=== PATIENT | female | born 1960 | race African-American/Black ===

== ENCOUNTER 2016-11-01 22:04 | Emergency (ER) | payer OTHER ==
[~2016-11-01] VITALS: Ht 165.1 cm; Wt 69.4 kg
[~2016-11-01 22:04] MED LIST: ATIVAN1 MG ORAL; BUTALBITAL-ASA1 EAC1 PO; DILAUDID2 MG ORAL; FERROUS SULFAT325 MG ORAL; IBUPROFEN600 MG ORAL; KEPPRA500 MG ORAL; NORCO 5-325 TA1 EACH ORAL; PANTOPRAZOLE SO40 MG ORAL; TEMODAR250 MG PO
[2016-11-01] MEDS ORDERED: GABAPENTIN300 MG ORAL (22:27)
[2016-11-01] MEDS ORDERED: AMLODIPINE BES2.5 MG ORAL (22:27)
[2016-11-01] MEDS ORDERED: HYDROmorphone 1mg/ml Carpuject IM ONE (22:45)
--- NOTE | 2016-11-01 23:40 | Emergency Room Report ---
History of Present Illness General Chief Complaint: Lower Extremity Injury Source: Patient, Family Member Present Illness HPI Is a 56-year-old female with multiple medical problem. She has a history of brain CA and admission. Currently she been treated for breast cancer with chemotherapy. She said that her legs usually gives out. Last week he gave out she fell hitting it. 3 days later and start swelling. Has been swollen since then. Pain is 8/10. Worse with palpation. Worse with walking. Still able to bear weight. No other injury. Did not pass out. Did not followup for this injury. Allergies: Coded Allergies: AMOXICILLIN (Verified Allergy, Severe, rash, 08/15/13) SHELLFISH DERIVED (Verified Allergy, Severe, Anaphylaxis, 08/15/13) IODINE (Unverified Allergy, Unknown, 11/13/14) CLINDAMYCIN (Verified Adverse Reaction, Severe, Anaphylaxis, 08/15/13) METRONIDAZOLE (Verified Adverse Reaction, Severe, Anaphylaxis, 08/15/13) Patient History Past Medical History: see triage record, old chart reviewed Past Surgical History: none, other Pertinent Family History: none Social History: Denies: smoking Now: No Immunizations: UTD Reviewed Nursing Documentation: PMH: Agreed, PSxH: Agreed Nursing Documentation-PMH Hx Cardiac Problems: No Hx Hypertension: Yes Hx Cancer: Yes - CANCER BRAIN; BREAST,LEFT BREAST MASTECTOMY Hx Gastrointestinal Problems: No - hernia in esophagus Hx Neurological Problems: Yes - BRAIN TUMOR CHEMO SURGERY CANCER 2013 Hx Alzheimer's Disease: No Hx Seizures: Yes Review of Systems Eye: Denies: blurred vision, eye pain ENT: Denies: ear pain, nose congestion, throat swelling Respiratory: Denies: cough, shortness of breath Cardiovascular: Denies: chest pain, palpitations Gastrointestinal: Denies: abdominal pain, diarrhea, nausea, vomiting Musculoskeletal: Reports: joint pain, joint swelling, Denies: back pain Skin: Denies: rash Neurological: Denies: headache, numbness Endocrine: Denies: increased thirst, increased urine Hematologic/Lymphatic: Denies: easy bruising All Other Systems: negative except mentioned in HPI Physical Exam Vital Signs Date Time Temp Pulse Resp B/P Pulse Ox O2 Delivery O2 Flow Rate FiO2 11/01/16 22:17 98.1 78 18 129/88 97 Room Air vitals normal Sp02 EP Interpretation: reviewed, normal General Appearance: well appearing, no apparent distress, alert Head: normocephalic, atraumatic Eyes: bilateral eye EOMI, bilateral eye PERRL ENT: hearing grossly normal, normal pharynx Neck: full range of motion, supple, no meningismus Respiratory: chest non-tender, lungs clear, normal breath sounds Cardiovascular #1: regular rate, rhythm, no murmur Gastrointestinal: normal bowel sounds, non tender, no mass, no organomegaly, no bruit, non-distended Musculoskeletal: back normal, normal range of motion, other - Right knee: There is effusion and tenderness medially. Knee is stable. Sensation normal. Tender to palpation to Neurologic: alert, oriented x3 Psychiatric: mood/affect normal Skin: warm/dry Procedures Splinting Splinting : Consent: Verbal Location: Right knee Pre-Made Type: knee immobilizer Pre-Proc Neuro Vasc Exam: normal Post-Proc Neuro Vasc Exam: normal Patient Tolerated: Well Complications: None Medical Decision Making Diagnostic Impression: Primary Impression: Injury of lower extremity Qualified Codes: S89.91XA - Unspecified injury of right lower leg, initial encounter Additional Impression: Right knee sprain Qualified Codes: S83.411A - Sprain of medial collateral ligament of right knee , initial encounter ER Course Patient present with a sprain of her right knee. Most likely ligament or meniscal injury. Knee is stable otherwise. We'll discharge home with knee immobilizer. She may need an MRI if not better. Other X-Ray Diagnostic Results Other X-Ray Diagnostic Results : X-Ray Ordered: Right knee Date: November 01, 2016 Time: 23:39 EP Interpretation: Yes Findings: no fractures, no dislocation, no soft tissue swelling Number of Views: 3 Last Vital Signs Date Time Temp Pulse Resp B/P Pulse Ox O2 Delivery O2 Flow Rate FiO2 11/01/16 22:17 98.1 78 18 129/88 97 Room Air Status: improved Disposition: HOME, SELF-CARE Condition: Stable Referrals: [facility],REFERRING (PCP) Patient Instructions: Knee Sprain Additional Instructions: Followup with your DrNaima in 7 days. You may need orthopedic referral. Return if worse. JESUS MELGAR M.D. November 01, 2016 23:40
[2016-11-01 23:51] VITALS: BP 131/81
--- NOTE | 2016-11-02 10:24 | Diagnostic Imaging Report ---
Indication: Right knee trauma Technique: XRAY KNEE THREE VIEWS RIGHT Comparison: None Findings: There is no acute fracture or dislocation. No joint effusion is identified. The suprapatellar enthesophyte is present. Impression: No acute osseous abnormality.
== END 2016-11-01 23:54 | disposition home or self-care (01) ==
LOC: EMR 22:42
DX: S89.91XA Unspecified injury of right lower leg, initial encounter (principal); S83.411A Sprain of medial collateral ligament of right knee, initial encounter; Z88.8 Allergy status to other drugs, medicaments and biological substances; Z88.6 Allergy status to analgesic agent; Z91.013 Allergy to seafood; Z91.041 Radiographic dye allergy status; I10 Essential (primary) hypertension; Z85.3 Personal history of malignant neoplasm of breast; Z85.841 Personal history of malignant neoplasm of brain; Z90.12 Acquired absence of left breast and nipple
CPT/HCPCS: 29530; 73562; 96372; 99283; J1170

== ENCOUNTER 2017-02-21 13:23 | Emergency (ER) | payer OTHER ==
[~2017-02-21] VITALS: Ht 165.1 cm; Wt 71.2 kg
[~2017-02-21 13:23] MED LIST changes: +AMLODIPINE BES2.5 MG ORAL; +GABAPENTIN300 MG ORAL
[2017-02-21] MEDS ORDERED: HYDROmorphone 1mg/ml Carpuject IVP ONE ×2 (13:45→16:15)
[2017-02-21] MEDS ORDERED: Ketorolac 30mg Inj IV ONE (13:45)
--- NOTE | 2017-02-21 14:22 | Emergency Room Report ---
History of Present Illness General Chief Complaint: Pain Source: Patient Present Illness HPI Patient presents with a complaint of total body pain. She has Dilaudid 2 mg at home but she was vomiting earlier today and didn't take any. The pain is out of control. It's all of her body. She's had this problem in the past with urinary tract infections. She states she usually gets better with IV dalaudid. (Past records denote opiate dependence.) Oncologist controls pain Rxs. The patient is post chemotherapy in July. Since that time she's had multiple urinary tract infections. Treated with Macrobid and Bactrim in December and Levaquin in January. Still with discharge throughout this. Had pap last week. Ob states not sure why having problem. States nothing obvious to treat. Patient with multiple allergies. Most she states having hives after taking medicines. No depression, but frustrated at UTI not being definitively treated. No URI sy, cough, headache (per se), rashes. She has a portacath. Allergies: Coded Allergies: AMOXICILLIN (Verified Allergy, Severe, rash, 08/15/13) SHELLFISH DERIVED (Verified Allergy, Severe, Anaphylaxis, 08/15/13) IODINE (Unverified Allergy, Unknown, 11/13/14) CLINDAMYCIN (Verified Adverse Reaction, Severe, Anaphylaxis, 08/15/13) METRONIDAZOLE (Verified Adverse Reaction, Severe, Anaphylaxis, 08/15/13) Patient History Past Medical History: see triage record, old chart reviewed Past Surgical History: other - breast resection L Social History: Denies: smoking Social History Narrative at home - here with daughter and grandson Reviewed Nursing Documentation: PMH: Agreed, PSxH: Agreed Nursing Documentation-PMH Hx Cardiac Problems: No Hx Hypertension: Yes Hx Cancer: Yes - CANCER BRAIN; BREAST,LEFT BREAST MASTECTOMY Hx Gastrointestinal Problems: No - hernia in esophagus Hx Neurological Problems: Yes - BRAIN TUMOR CHEMO SURGERY CANCER 2013 Hx Alzheimer's Disease: No Hx Seizures: Yes Review of Systems All Other Systems: negative except mentioned in HPI Physical Exam Vital Signs Date Time Temp Pulse Resp B/P (MAP) Pulse Ox O2 Delivery O2 Flow Rate FiO2 02/21/17 13:26 97.9 73 16 128/8 97 Room Air Sp02 EP Interpretation: reviewed, normal General Appearance: well appearing, no apparent distress, GCS 15 Head: normocephalic Eyes: bilateral eye normal inspection ENT: moist mucus membranes Neck: supple Respiratory: lungs clear, normal breath sounds, other - portacath R chest Cardiovascular #1: regular rate, rhythm Cardiovascular #2: 2+ radial (R) Gastrointestinal: normal bowel sounds, non tender, soft Genitourinary: other - cystocoel - yellow d/c Musculoskeletal: back normal, gait/station normal, normal range of motion Neurologic: alert, oriented x3 Psychiatric: mood/affect normal Skin: normal inspection, warm/dry Medical Decision Making Diagnostic Impression: Primary Impression: UTI (urinary tract infection) Qualified Codes: N30.00 - Acute cystitis without hematuria Additional Impressions: Trichomonas vaginalis (TV) infection Cystocele Qualified Codes: N81.11 - Cystocele, midline ER Course Patient with total body pain. DDx: viral process, fibromyalgia, vasculitis, UTI - resistant organism, opiate seeking behavior, hypercalcemia/other electrolyte abnormalities amongst others. Not appear toxic. Labs and CXR indicated. Will check UA and also vaginal swab. Will treat pain and nausea. Cystocele might contribute. Labs with pyuria. Wet mount with trichomonas. CXR no pathology, EKG unremarkable. Dose of rocephin given in ED. Patient improved with treatment. Ton Po here. Multiple antibiotic allergies. Difficult finding appropriate treatment. Will treat and pre-treat with benadryl. Patient stable for outpatient observation and treatment. Laboratory Tests Test 02/21/17 14:48 02/21/17 15:21 02/21/17 16:15 White Blood Count 6.9 K/UL (4.8-10.8) Red Blood Count 4.69 M/UL (4.20-5.40) Hemoglobin 13.4 G/DL (12.0-16.0) Hematocrit 42.2 % (37.0-47.0) Mean Corpuscular Volume 90 FL (80-99) Mean Corpuscular Hemoglobin 28.6 PG (27.0-31.0) Mean Corpuscular Hemoglobin Concent 31.7 G/DL (32.0-36.0) L Red Cell Distribution Width 13.2 % (11.6-14.8) Platelet Count 279 K/UL (150-450) Mean Platelet Volume 7.3 FL (6.5-10.1) Neutrophils (%) (Auto) 57.7 % (45.0-75.0) Lymphocytes (%) (Auto) 34.2 % (20.0-45.0) Monocytes (%) (Auto) 5.5 % (1.0-10.0) Eosinophils (%) (Auto) 1.7 % (0.0-3.0) Basophils (%) (Auto) 0.9 % (0.0-2.0) Prothrombin Time 10.7 SEC (9.30-11.50) Prothrombin Time INR 1.0 (0.9-1.1) Sodium Level 142 mEQ/L (135-145) Potassium Level 3.4 mEQ/L (3.4-4.9) Chloride Level 103 mEQ/L (98-107) Carbon Dioxide Level 26 mEQ/L (20-30) Anion Gap 13 (5-15) Blood Urea Nitrogen 9 mg/dL (7-23) Creatinine 0.7 mg/dL (0.5-0.9) Estimate Glomerular Filtration Rate > 60 mL/min (>60) Glucose Level 91 mg/dL (74-106) Calcium Level 10.0 mg/dL (8.6-10.2) Total Bilirubin 0.4 mg/dL (0.0-1.2) Aspartate Amino Transferase (AST) 14 U/L (5-40) Alanine Aminotransferase (ALT) 7 U/L (3-33) Alkaline Phosphatase 82 U/L (35-104) Total Creatine Kinase 55 U/L (26-140) Troponin I < 0.30 ng/mL (<=0.30) Pro-B-Type Natriuretic Peptide 11 pg/mL (0-125) Total Protein 7.3 g/dL (6.6-8.7) Albumin 4.4 g/dL (3.5-5.2) Globulin 2.9 g/dL Albumin/Globulin Ratio 1.5 (1.0-2.7) Lipase 20 U/L (< 60) Urine Color Yellow Urine Appearance Cloudy Urine pH 5 (4.5-8.0) Urine Specific [place] 1.025 (1.005-1.035) Urine Protein 2+ (NEGATIVE) H Urine Glucose (UA) Negative (NEGATIVE) Urine Ketones 1+ (NEGATIVE) H Urine Occult Blood 2+ (NEGATIVE) H Urine Nitrite Negative (NEGATIVE) Urine Bilirubin Negative (NEGATIVE) Urine Urobilinogen Normal MG/DL (0.0-1.0) Urine Leukocyte Esterase 3+ (NEGATIVE) H Urine RBC 15-20 /HPF (0 - 2) H Urine WBC 30-40 /HPF (0 - 2) H Urine Squamous Epithelial Cells Many /LPF (NONE/OCC) H Urine Bacteria Many /HPF (NONE) H PTT 22 SEC (23-33) L Microbiology Date/Time Source Procedure Growth Status 02/21/17 16:15 Vaginal Wet Prep - Final Complete EKG Diagnostic Results Rate: normal Rhythm: NSR ST Segments: no acute changes Rhythm Strip Diag. Results EP Interpretation: yes Rhythm: NSR, no PVC's, no ectopy Chest X-Ray Diagnostic Results Chest X-Ray Diagnostic Results : Chest X-Ray Ordered: Yes # of Views/Limited/Complete: 1 View Indication: Other EP Interpretation: Yes Interpretation: no consolidation, no effusion, no pneumothorax, other - portacath and clips L Impression: Other Interpreting ER Provider: Electronically signed by Jose Miguel Dominguez MD Last Vital Signs Date Time Temp Pulse Resp B/P (MAP) Pulse Ox O2 Delivery O2 Flow Rate FiO2 02/21/17 17:15 98.0 59 17 121/89 99 Room Air Status: improved Disposition: HOME, SELF-CARE Condition: Improved Scripts Ondansetron Odt* (ZOFRAN ODT*) 4 Mg Tab.rapdis 4 MG ORAL Q8H Y for Nausea & Vomiting, #10 TAB 1 Refill Prov: Jose Miguel Dominguez M.D. 02/21/17 Diphenhydramine HCl (Benadryl) 25 Mg Capsule 25 MG PO Q6HR Y for Itching/Pruritis, #14 CAP Prov: Jose Miguel Dominguez M.D. 02/21/17 Tinidazole (TINIDAZOLE) 500 Mg Tablet 1 GM PO DAILY for 5 Days, TAB Prov: Jose Miguel Dominguez M.D. 02/21/17 Cephalexin* (KEFLEX*) 500 Mg Capsule 500 MG ORAL Q6H, #28 CAP 0 Refills Prov: Jose Miguel Dominguez M.D. 02/21/17 Jose Miguel Dominguez M.D. Feb 21, 2017 14:22
[2017-02-21 15:00] LABS: BASOPHILS % (AUTO) 0.9 % (0.0-2.0); EOSINOPHILS % (AUTO) 1.7 % (0.0-3.0); LYMPHOCYTES % (AUTO) 34.2 % (20.0-45.0); MEAN CORPUSCULAR HEMOGLOBIN 28.6 PG (27.0-31.0); MEAN CORPUSCULAR HGB CONC 31.7 G/DL (32.0-36.0); MEAN CORPUSCULAR VOLUME 90 FL (80-99); MEAN PLATELET VOLUME 7.3 FL (6.5-10.1); MONOCYTES % (AUTO) 5.5 % (1.0-10.0); NEUTROPHILS % (AUTO) 57.7 % (45.0-75.0); PLATELET COUNT 279 K/UL (150-450); RED BLOOD COUNT 4.69 M/UL (4.20-5.40); RED CELL DISTRIBUTION WIDTH 13.2 % (11.6-14.8); WHITE BLOOD COUNT 6.9 K/UL (4.8-10.8)
--- NOTE | 2017-02-21 15:01 | Diagnostic Imaging Report ---
Indication: Chest pain Comparison: None A single view chest radiograph was obtained. Findings: The lungs are clear. There is a right chest port which is in good position. The tip is in the right atrium. Heart size is normal. Aorta is mildly ectatic. Bones are osteopenic. There are surgical clips in the left axilla. Clips also projected over the left mediastinum region. Impression: No acute disease. Chest port Status post Left axillary surgery
[2017-02-21 15:12] LABS: ALANINE AMINOTRANSFERASE 7 U/L (3-33); ALBUMIN/GLOBULIN RATIO 1.5 (1.0-2.7); ANION GAP 13 (5-15); ASPARTATE AMINO TRANSFERASE 14 U/L (5-40); CARBON DIOXIDE 26 mEQ/L (20-30); CHLORIDE 103 mEQ/L (98-107); CREATININE 0.7 mg/dL (0.5-0.9); GLOMERULAR FILTRATION RATE > 60 mL/min (>60); HEMOLYSIS 11; LIPASE 20 U/L (< 60); POTASSIUM 3.4 mEQ/L (3.4-4.9); SODIUM 142 mEQ/L (135-145); TOTAL PROTEIN 7.3 g/dL (6.6-8.7); TROPONIN I < 0.30 ng/mL (<=0.30)
[2017-02-21 15:47] LABS: PROTHROMBIN TIME 10.7 SEC (9.30-11.50)
[2017-02-21 15:57] LABS: APPEARANCE,URINE CLOUDY; KETONES,URINE 1+ (NEGATIVE); LEUKOCYTE ESTERASE ,URINE 3+ (NEGATIVE); NITRITE,URINE NEGATIVE (NEGATIVE); PH,URINE 5 (4.5-8.0); PROTEIN,URINE 2+ (NEGATIVE); UROBILINOGEN,URINE NORMAL MG/DL (0.0-1.0)
[2017-02-21 16:06] LABS: RBC,URINE 15-20 /HPF (0 - 2); WBC,URINE 30-40 /HPF (0 - 2)
[2017-02-21 16:07] LABS: BACTERIA,URINE MANY /HPF; SQUAMOUS EPITHELIAL CELL,UR MANY /LPF (NONE/OCC)
[2017-02-21 16:13] VITALS: BP 124/86
[2017-02-21] MEDS ORDERED: cefTRIAXone 1 GM in NS 55 ML IVPB ONE (16:30)
[2017-02-21] MEDS ORDERED: KEFLEX500 MG ORAL (16:51)
[2017-02-21] MEDS ORDERED: TINIDAZOLE500 MG PO (16:58)
[2017-02-21] MEDS ORDERED: BENADRYL25 M3 PO (16:58)
[2017-02-21] MEDS ORDERED: ZOFRAN ODT4 MG ORAL (17:06)
[2017-02-21 17:14] VITALS: BP 121/89
[2017-02-21 17:15] VITALS: BP 121/89
--- NOTE | 2017-02-22 12:32 | Cardiology Report ---
APPROVED REPORT EKG Measurement Heart [id number] Sinus bradycardia Otherwise normal ECG
== END 2017-02-21 17:19 | disposition home or self-care (01) ==
LOC: EMR 15:10
DX: N39.0 Urinary tract infection, site not specified (principal); A59.01 Trichomonal vulvovaginitis; N81.10 Cystocele, unspecified; I10 Essential (primary) hypertension; Z85.3 Personal history of malignant neoplasm of breast; Z90.12 Acquired absence of left breast and nipple; G30.9 Alzheimer's disease, unspecified; F02.80 Dementia in other diseases classified elsewhere, unspecified severity, without behavioral disturbance, psychotic disturbance, mood disturbance, and anxiety; Z88.0 Allergy status to penicillin; Z91.013 Allergy to seafood; Z88.1 Allergy status to other antibiotic agents
CPT/HCPCS: 36415; 71010; 80053; 81003; 82550; 83690; 83880; 84484; 85025; 85610; 85730; 87086; 87210; 93005; 96361; 96374; 96375; 99284; J0696; J1170; J1885; J2405

== ENCOUNTER 2017-08-20 18:59 | Emergency (ER) | payer OTHER ==
[~2017-08-20] VITALS: Ht 165.1 cm; Wt 73.5 kg
[~2017-08-20 18:59] MED LIST changes: +BENADRYL25 M3 PO; +KEFLEX500 MG ORAL; +TINIDAZOLE500 MG PO; +ZOFRAN ODT4 MG ORAL
[2017-08-20 19:50] VITALS: BP 146/97
[2017-08-20] MEDS ORDERED: HYDROmorphone 1mg/ml Carpuject IM ONE (20:00)
[2017-08-20 20:42] LABS: APPEARANCE,URINE CLEAR; BILIRUBIN, URINE NEGATIVE (NEGATIVE); GLUCOSE, URINE (UA) NEGATIVE (NEGATIVE); KETONES,URINE NEGATIVE (NEGATIVE); LEUKOCYTE ESTERASE ,URINE 2+ (NEGATIVE); NITRITE,URINE NEGATIVE (NEGATIVE); PH,URINE 5 (4.5-8.0); PROTEIN,URINE NEGATIVE (NEGATIVE); UROBILINOGEN,URINE NORMAL MG/DL (0.0-1.0)
[2017-08-20 20:43] LABS: COLOR,URINE YELLOW
[2017-08-20 21:09] VITALS: BP 140/92
[2017-08-20 21:10] VITALS: BP 146/97
--- NOTE | 2017-08-22 07:06 | Emergency Room Report ---
History of Present Illness General Chief Complaint: Pain Source: Patient Present Illness HPI 56-year-old female for evaluation. Patient complaining of bodyaches x1 day. Dull, 10 out of 10, nonradiating. States pain is diffuse. Denies any recent trauma. History of brain cancer and breast cancer. Patient states that anytime she has pain like this is likely because of a "infection". Patient has often had UTIs which presented like this. Denies dysuria or hematuria. Denies flank pain. Denies nausea or vomiting. Denies sore throat. Denies cough. No other aggravating relieving factors. denies any other associated symptoms Allergies: Coded Allergies: AMOXICILLIN (Verified Allergy, Severe, rash, 08/15/13) SHELLFISH DERIVED (Verified Allergy, Severe, Anaphylaxis, 08/15/13) IODINE (Unverified Allergy, Unknown, 11/13/14) CLINDAMYCIN (Verified Adverse Reaction, Severe, Anaphylaxis, 08/15/13) METRONIDAZOLE (Verified Adverse Reaction, Severe, Anaphylaxis, 08/15/13) Patient History Past Medical History: HTN, other - brain ca Past Surgical History: other - mastectomy Pertinent Family History: none Social History: Denies: smoking, alcohol use, drug use Last Menstrual Period: NA Now: No Immunizations: UTD Reviewed Nursing Documentation: PMH: Agreed, PSxH: Agreed Nursing Documentation-PMH Hx Cardiac Problems: No Hx Hypertension: Yes Hx Cancer: Yes - CANCER BRAIN; BREAST,LEFT BREAST MASTECTOMY Hx Gastrointestinal Problems: No - hernia in esophagus Hx Neurological Problems: Yes - BRAIN TUMOR CHEMO SURGERY CANCER 2013 Hx Alzheimer's Disease: No Hx Seizures: Yes Review of Systems All Other Systems: negative except mentioned in HPI Physical Exam Vital Signs Date Time Temp Pulse Resp B/P (MAP) Pulse Ox O2 Delivery O2 Flow Rate FiO2 08/20/17 19:31 97.9 69 18 146/97 99 Room Air 97.9 Sp02 EP Interpretation: reviewed, normal General Appearance: no apparent distress, alert, GCS 15, non-toxic Head: normocephalic, atraumatic Eyes: bilateral eye normal inspection, bilateral eye PERRL ENT: hearing grossly normal, normal pharynx, no angioedema, normal voice Neck: full range of motion, supple/symm/no masses Respiratory: chest non-tender, lungs clear, normal breath sounds, speaking full sentences Cardiovascular #1: regular rate, rhythm, no edema Cardiovascular #2: 2+ carotid (R), 2+ carotid (L), 2+ radial (R), 2+ radial (L) , 2+ dorsalis pedis (R), 2+ dorsalis pedis (L) Gastrointestinal: normal bowel sounds, non tender, soft, non-distended, no guarding, no rebound Rectal: deferred Genitourinary: normal inspection, no CVA tenderness Musculoskeletal: back normal, gait/station normal, normal range of motion, non- tender Neurologic: alert, oriented x3, responsive, motor strength/tone normal, sensory intact, speech normal Psychiatric: judgement/insight normal, memory normal, mood/affect normal, no suicidal/homicidal ideation Reflexes: 3+ bicep (R), 3+ bicep (L), 3+ tricep (R), 3+ tricep (L), 3+ knee (R) , 3+ knee (L) Skin: normal color, no rash, warm/dry, well hydrated Lymphatic: no adenopathy Medical Decision Making Diagnostic Impression: Primary Impression: Pain ER Course Hospital Course 56-year-old female presents ED with diffuse pain. History of cancer. Differential diagnoses include: chronic pain, viral syndrome, UTI Clinical course Patient placed on stretcher. After initial history and physical I ordered pain meds, UA UA noted to be unremarkable. On reassessment pain is resolved Discussed findings with the patient. Given stable vitals with unremarkable physical exam I see no reason for further intervention or workup. Patient agrees. Recommend close followup with PMD Diagnosis - pain Stable and discharged home. Instructed to followup with PMD. Return to ED if symptoms recur or worsen Labs Test 08/20/17 20:00 Urine Color Yellow Urine Appearance Clear Urine pH 5 (4.5-8.0) Urine Specific [place] 1.025 (1.005-1.035) Urine Protein Negative (NEGATIVE) Urine Glucose (UA) Negative (NEGATIVE) Urine Ketones Negative (NEGATIVE) Urine Occult Blood Negative (NEGATIVE) Urine Nitrite Negative (NEGATIVE) Urine Bilirubin Negative (NEGATIVE) Urine Urobilinogen Normal MG/DL (0.0-1.0) Urine Leukocyte Esterase 2+ (NEGATIVE) Urine RBC 0-2 /HPF (0 - 2) Urine WBC 2-4 /HPF (0 - 2) Urine Squamous Epithelial Cells Few /LPF (NONE/OCC) Urine Bacteria Few /HPF (NONE) Urine Mucus Moderate /LPF (NONE/OCC) Last Vital Signs Date Time Temp Pulse Resp B/P (MAP) Pulse Ox O2 Delivery O2 Flow Rate FiO2 08/20/17 21:10 97.9 76 18 146/97 99 Room Air 208.2 Status: improved Disposition: HOME, SELF-CARE Condition: Stable Referrals: [facility],REFERRING (PCP) Patient Instructions: Chronic Pain CHRISTIANO SANTOS M.D. Aug 22, 2017 07:06
== END 2017-08-20 21:10 | disposition home or self-care (01) ==
LOC: EMR 19:45
DX: R52 Pain, unspecified (principal); I10 Essential (primary) hypertension; Z85.3 Personal history of malignant neoplasm of breast; Z85.841 Personal history of malignant neoplasm of brain; Z90.12 Acquired absence of left breast and nipple; Z88.1 Allergy status to other antibiotic agents; Z91.041 Radiographic dye allergy status; Z88.0 Allergy status to penicillin; Z91.013 Allergy to seafood
CPT/HCPCS: 81003; 96372; 99284; J1170

== ENCOUNTER 2017-09-01 21:10 | Emergency (ER) | payer OTHER ==
[~2017-09-01] VITALS: Ht 165.1 cm; Wt 73.5 kg
[2017-09-01 21:45] VITALS: BP 120/87
[2017-09-01] MEDS ORDERED: ANASTROZOLE1 MG PO (21:45)
[2017-09-01] MEDS ORDERED: ELMIRON100 MG ORAL (21:46)
[2017-09-01] MEDS ORDERED: HYDROmorphone 1mg/ml Carpuject IM ONE (22:15)
[2017-09-01] MEDS ORDERED: DURAGESIC1 EAC1 TDERMAL (22:21)
--- NOTE | 2017-09-01 22:21 | Emergency Room Report ---
History of Present Illness General Chief Complaint: Pain Source: Patient Present Illness HPI This is a 56-year-old female who has a history of brain cancer and also breast cancer. She is currently getting chemotherapy for breast cancer. Her chemotherapy drugs gave her body pain. She is currently taking [place] 10 mg but is not helping anymore. No nausea no vomiting. No fever chills. Pain is 9 out of 10. Diffuse in nature. No trauma. No focal deficit. Typical pain for her. No cough or congestion. Allergies: Coded Allergies: AMOXICILLIN (Verified Allergy, Severe, rash, 08/15/13) SHELLFISH DERIVED (Verified Allergy, Severe, Anaphylaxis, 08/15/13) IODINE (Unverified Allergy, Unknown, 11/13/14) CLINDAMYCIN (Verified Adverse Reaction, Severe, Anaphylaxis, 08/15/13) METRONIDAZOLE (Verified Adverse Reaction, Severe, Anaphylaxis, 08/15/13) Patient History Past Medical History: see triage record, old chart reviewed Past Surgical History: other Pertinent Family History: none Social History: Denies: smoking Last Menstrual Period: n/a Now: No Immunizations: other Reviewed Nursing Documentation: PMH: Agreed, PSxH: Agreed Nursing Documentation-PMH Hx Cardiac Problems: No Hx Hypertension: Yes Hx Cancer: Yes - CANCER BRAIN; BREAST,LEFT BREAST MASTECTOMY 2016 Hx Gastrointestinal Problems: No - hernia in esophagus Hx Neurological Problems: Yes - BRAIN TUMOR CHEMO SURGERY CANCER 2013 Hx Alzheimer's Disease: No Hx Seizures: Yes Review of Systems Eye: Denies: eye pain, blurred vision ENT: Denies: ear pain, nose congestion, throat swelling Respiratory: Denies: cough, shortness of breath Cardiovascular: Denies: chest pain, palpitations Gastrointestinal: Denies: abdominal pain, diarrhea, nausea, vomiting Musculoskeletal: Denies: back pain, joint pain Skin: Denies: rash Neurological: Denies: headache, numbness Endocrine: Denies: increased thirst, increased urine Hematologic/Lymphatic: Denies: easy bruising All Other Systems: negative except mentioned in HPI Physical Exam Vital Signs Date Time Temp Pulse Resp B/P (MAP) Pulse Ox O2 Delivery O2 Flow Rate FiO2 09/01/17 21:37 99.4 99 20 123/88 94 Room Air 99.3 vital is normal Sp02 EP Interpretation: reviewed, normal General Appearance: well appearing, no apparent distress, alert Head: normocephalic, atraumatic Eyes: bilateral eye PERRL, bilateral eye EOMI ENT: hearing grossly normal, normal pharynx Neck: full range of motion, supple, no meningismus Respiratory: chest non-tender, lungs clear, normal breath sounds Cardiovascular #1: regular rate, rhythm, no murmur Gastrointestinal: normal bowel sounds, non tender, no mass, no organomegaly, no bruit, non-distended Musculoskeletal: back normal, gait/station normal, normal range of motion Psychiatric: mood/affect normal Skin: warm/dry Medical Decision Making Diagnostic Impression: Primary Impression: Myalgia Additional Impression: Chronic pain disorder ER Course Patient with exacerbation of chronic pain. No evidence of infection. No evidence of UTI. She was here a few days ago for the same thing. We'll put her on Duragesic patch. Last Vital Signs Date Time Temp Pulse Resp B/P (MAP) Pulse Ox O2 Delivery O2 Flow Rate FiO2 09/01/17 21:37 99.4 99 20 123/88 94 Room Air 99.3 Status: improved Disposition: HOME, SELF-CARE Condition: Stable Scripts Fentanyl 50MCG Patch* (DURAGESIC 50MCG*) 1 Each Patch.td72 1 PATCH TDERMAL EVERY 72 HOURS, #10 PATCH Prov: JESUS MELGAR M.D. 09/01/17 Patient Instructions: Chronic Pain Additional Instructions: Follow-up with your doctor in 7 days. You may benefit from referral to see a pain specialist. Return if worse. JESUS MELGAR M.D. Sep 01, 2017 22:21
[2017-09-01 23:00] VITALS: BP 125/88
[2017-09-01 23:05] VITALS: BP 125/88
== END 2017-09-01 23:05 | disposition home or self-care (01) ==
LOC: EMR 21:57
DX: C50.919 Malignant neoplasm of unspecified site of unspecified female breast (principal); M79.1 Myalgia; G89.4 Chronic pain syndrome; I10 Essential (primary) hypertension; Z85.841 Personal history of malignant neoplasm of brain; Z90.12 Acquired absence of left breast and nipple; Z88.1 Allergy status to other antibiotic agents; Z91.013 Allergy to seafood; Z91.041 Radiographic dye allergy status; Z88.8 Allergy status to other drugs, medicaments and biological substances
CPT/HCPCS: 96372; 99283; J1170

== ENCOUNTER 2017-10-20 19:50 | Emergency (ER) | payer OTHER ==
[~2017-10-20] VITALS: Ht 165.1 cm; Wt 73.5 kg
[~2017-10-20 19:50] MED LIST changes: +ANASTROZOLE1 MG PO; +DURAGESIC1 EAC1 TDERMAL; +ELMIRON100 MG ORAL
[2017-10-20 20:05] VITALS: BP 149/97
[2017-10-20] MEDS ORDERED: HYDROmorphone 1mg/ml Carpuject IM ONE (21:15)
--- NOTE | 2017-10-20 21:38 | Emergency Room Report ---
History of Present Illness General Chief Complaint: Back Pain-No Injury Source: Patient, Medical Record Present Illness HPI This is a 57-year-old female with a history of brain CA and most recently breast CA. She is no longer under radiation. She was taking medicine for 5 years for her cancer. She said that she had a body scan 3 months ago and everything was stable. She presents chief complaint of left sided rib pain for 2-3 weeks. Her doctor did an x-ray and said that there was an old fracture. Worse with movement and palpation. No nausea no vomiting. No shortness of breath. No chest pain. Pain medication not helping much. She also said that her medication usually makes her bone hurt but this is different. Anus 9 out of 10. Allergies: Coded Allergies: AMOXICILLIN (Verified Allergy, Severe, rash, 08/15/13) SHELLFISH DERIVED (Verified Allergy, Severe, Anaphylaxis, 08/15/13) IODINE (Unverified Allergy, Unknown, 11/13/14) CLINDAMYCIN (Verified Adverse Reaction, Severe, Anaphylaxis, 08/15/13) METRONIDAZOLE (Verified Adverse Reaction, Severe, Anaphylaxis, 08/15/13) Patient History Past Medical History: see triage record, old chart reviewed Past Surgical History: other Pertinent Family History: none Social History: Denies: smoking Now: No Immunizations: other Reviewed Nursing Documentation: PMH: Agreed; PSxH: Agreed Nursing Documentation-PMH Hx Cardiac Problems: No Hx Hypertension: Yes Hx Cancer: Yes - CANCER BRAIN; BREAST,LEFT BREAST MASTECTOMY 2017 Hx Gastrointestinal Problems: No - hernia in esophagus Hx Neurological Problems: Yes - BRAIN TUMOR CHEMO SURGERY CANCER 2013 Hx Alzheimer's Disease: No Hx Seizures: Yes Review of Systems Eye: Denies: eye pain, blurred vision ENT: Denies: ear pain, nose congestion, throat swelling Respiratory: Denies: cough, shortness of breath Cardiovascular: Denies: chest pain, palpitations Gastrointestinal: Denies: abdominal pain, diarrhea, nausea, vomiting Musculoskeletal: Reports: back pain; Denies: joint pain Skin: Denies: rash Neurological: Denies: headache, numbness Endocrine: Denies: increased thirst, increased urine Hematologic/Lymphatic: Denies: easy bruising All Other Systems: negative except mentioned in HPI Physical Exam Vital Signs Date Time Temp Pulse Resp B/P (MAP) Pulse Ox O2 Delivery O2 Flow Rate FiO2 10/20/17 20:05 99.3 86 18 149/97 93 Room Air 99.3 vitals unremarkable Sp02 EP Interpretation: reviewed, normal General Appearance: well appearing, no apparent distress, alert Head: normocephalic, atraumatic Eyes: bilateral eye PERRL, bilateral eye EOMI ENT: hearing grossly normal, normal pharynx Neck: full range of motion, supple, no meningismus Respiratory: chest non-tender, lungs clear, normal breath sounds, other - left mastectomy. She has tenderness to palpation a the left lateral rib cage. No rash. No crepitance. Cardiovascular #1: regular rate, rhythm, no murmur Gastrointestinal: normal bowel sounds, non tender, no mass, no organomegaly, no bruit, non-distended Musculoskeletal: back normal, gait/station normal, normal range of motion Psychiatric: mood/affect normal Skin: warm/dry Medical Decision Making Diagnostic Impression: Primary Impression: Metastasis to spinal column Additional Impression: Malignant bone pain ER Course Patient presents with radicular pain of the chest area. This is concerning for bony metastasis. This is seen on the CT scan. Unknown if this is new or old. I will give the patient a copy of the CT scan and the reading. We'll discharge home. No pneumothorax. Unlikely to PE. CT/MRI/US Diagnostic Results CT/MRI/US Diagnostic Results : Imaging Test Ordered: CT chest Impression Read by radiologist. No pneumothorax. Lungs are clear. Multiple spinal metastasis. No pathological fracture. Diffuse metastatic metastasis. Last Vital Signs Date Time Temp Pulse Resp B/P (MAP) Pulse Ox O2 Delivery O2 Flow Rate FiO2 10/20/17 20:05 210.7 86 18 149/97 95 Room Air 210.7 Status: improved Disposition: HOME, SELF-CARE Condition: Stable Referrals: [facility],REFERRING (PCP) Additional Instructions: Call your oncologist for follow-up appointment JESSICA. Bring the CT scan reading and CD with you. Return if symptom worsen. JESUS MELGAR M.D. Oct 20, 2017 21:38
[2017-10-20 22:25] VITALS: BP_SYST 145; BP_SYST 149; BP_DIAS 94; BP_DIAS 97
--- NOTE | 2017-10-21 08:42 | Diagnostic Imaging Report ---
Indication: Chest pain Technique: Continuous helical transaxial imaging of the chest was obtained from the thoracic inlet to the upper abdomen. No intravenous contrast was administered. Coronal 2-D reformats were also obtained. Total Dose length Product (DLP): 591.[address] Dose Index Volume (CTDIvol): 15.06 mGy Comparison: none Findings: Left mastectomy noted with surgical clips in the left axilla consistent with prior breast carcinoma, mastectomy and axillary node dissection. The lungs are clear. The liver is diffusely abnormal with areas of low attenuation consistent with metastatic neoplasm. There are multiple lytic lesions within the thoracic spine consistent with metastatic neoplasm. There is a right chest port present with the tip of the port terminating in the right atrium in good position. The heart is unremarkable. There is no adenopathy in the chest. Small hiatal hernia is present. No pleural effusion identified. Trace basilar atelectasis noted posteriorly. Aorta is mildly calcified. There is probable sludge or small stones in the gallbladder. There are hypodensities within the left kidney, partially imaged on this study and probably cystic. IMPRESSION: Evidence of metastatic neoplasm to the bones and liver. Evidence of prior diagnosis of breast carcinoma with stigmata of left mastectomy and axillary lymph node dissection. Atherosclerotic disease Stones versus sludge in the gallbladder. Suggestion of cysts within the left kidney, incompletely assessed on the current study is obtained. Hiatal hernia [facility] has communicated the preliminary results to the Emergency Department. Their findings are largely concordant with this report. The CT scanner at [facility] is accredited by the [employer] and the scans are performed using dose optimization techniques as appropriate to a performed exam including Automatic Exposure control.
== END 2017-10-20 22:28 | disposition home or self-care (01) ==
LOC: EMR 20:47
DX: C79.51 Secondary malignant neoplasm of bone (principal); G89.3 Neoplasm related pain (acute) (chronic); Z85.3 Personal history of malignant neoplasm of breast; Z85.841 Personal history of malignant neoplasm of brain; Z90.12 Acquired absence of left breast and nipple; I10 Essential (primary) hypertension; K44.9 Diaphragmatic hernia without obstruction or gangrene; Z91.041 Radiographic dye allergy status; Z88.0 Allergy status to penicillin; Z91.013 Allergy to seafood; Z88.1 Allergy status to other antibiotic agents
CPT/HCPCS: 71250; 96372; 99284; J1170

== ENCOUNTER 2017-11-10 20:00 | Emergency (ER) | payer OTHER ==
[~2017-11-10] VITALS: Ht 165.1 cm; Wt 72.6 kg
[2017-11-10 20:53] VITALS: BP 132/95
[2017-11-10] MEDS ORDERED: Morphine Sulfate 10mg/ml Inj IM ONE (21:15)
--- NOTE | 2017-11-10 21:24 | Emergency Room Report ---
History of Present Illness General Chief Complaint: Pain Source: Patient Present Illness HPI This patient has a history of metastatic breast cancer. She states she underwent radiation marking today. She states that after the visit today she had pain in the right side of her rib cage that radiates to her arm. She states it is very tender to palpation. She denies trauma. She denies chest pain or abdominal pain. She denies shortness of breath. She states that fentanyl patches are not working for her and she is not using them. She is requesting IM Dilaudid. She states that this is pain related to her metastatic cancer. She has no other complaints. Allergies: Coded Allergies: AMOXICILLIN (Verified Allergy, Severe, rash, 08/15/13) SHELLFISH DERIVED (Verified Allergy, Severe, Anaphylaxis, 08/15/13) IODINE (Unverified Allergy, Unknown, 11/13/14) CLINDAMYCIN (Verified Adverse Reaction, Severe, Anaphylaxis, 08/15/13) METRONIDAZOLE (Verified Adverse Reaction, Severe, Anaphylaxis, 08/15/13) Patient History Past Medical History: see triage record, other - Metastatic breast ca, brain tumor. Past Surgical History: other - Mastectomy Social History: Denies: smoking, alcohol use, drug use Last Menstrual Period: None Reviewed Nursing Documentation: PMH: Agreed; PSxH: Agreed Nursing Documentation-PMH Hx Cardiac Problems: No Hx Hypertension: Yes Hx Cancer: Yes - CANCER BRAIN; BREAST,LEFT BREAST MASTECTOMY 2016 Hx Gastrointestinal Problems: No - hernia in esophagus Hx Neurological Problems: Yes - BRAIN TUMOR CHEMO SURGERY CANCER 2013 Hx Alzheimer's Disease: No Hx Seizures: Yes Review of Systems All Other Systems: negative except mentioned in HPI Physical Exam Vital Signs Date Time Temp Pulse Resp B/P (MAP) Pulse Ox O2 Delivery O2 Flow Rate FiO2 11/10/17 20:06 98.3 83 18 132/95 98 Room Air 98.2 Sp02 EP Interpretation: reviewed, normal General Appearance: no apparent distress, alert, GCS 15, non-toxic Head: normocephalic, atraumatic Eyes: bilateral eye normal inspection, bilateral eye PERRL ENT: hearing grossly normal, normal pharynx, no angioedema, normal voice Neck: full range of motion, supple/symm/no masses Respiratory: lungs clear, normal breath sounds, no respiratory distress, no retraction, no accessory muscle use, speaking full sentences, other - TTP along the lower ribs on the R. chest wall, reproduces pain. Cardiovascular #1: regular rate, rhythm, no edema Gastrointestinal: normal bowel sounds, non tender, soft, non-distended, no guarding, no rebound Rectal: deferred Musculoskeletal: back normal, gait/station normal, normal range of motion, non- tender Neurologic: alert, oriented x3, responsive, motor strength/tone normal, sensory intact, speech normal Psychiatric: judgement/insight normal, memory normal, mood/affect normal, no suicidal/homicidal ideation Skin: normal color, no rash, warm/dry, well hydrated Medical Decision Making Diagnostic Impression: Primary Impression: Chronic pain ER Course This patient has chronic pain and obvious opioid dependence. She does have metastatic breast cancer. Educated the patient that I could not give her prescription for any narcotics for her chronic pain. However, she did request IM Dilaudid. Dilaudid is on backorder and she was given morphine IM. She was requesting an IM injection of a narcotic and did not want any further workup. The patient's pain is reproducible on examination and is likely musculoskeletal in etiology. I do not suspect an emergency medical condition based on my medical screening exam, I do not feel any further evaluation is indicated. The patient is given close return precautions and follow-up instructions. Last Vital Signs Date Time Temp Pulse Resp B/P (MAP) Pulse Ox O2 Delivery O2 Flow Rate FiO2 11/10/17 21:16 98.2 11/10/17 20:53 18 132/95 98 Room Air 11/10/17 20:06 83 Disposition: HOME, SELF-CARE Condition: Improved Patient Instructions: Chronic Pain Additional Instructions: The Emergency Department only prescribes CONTROLLED SUBSTANCES for acute injuries. There is no evidence of an emergent condition requiring the requested medication refill, and no evidence of an acute injury. Controlled substances are very addictive and require close monitoring when being prescribed controlled substances an outpatient treatment The emergency department is not a resource to be used as outpatient followup, and therefore reserve the regular prescribing, or refill or regularly prescribed controlled substances for your PCP or your chronic pain management provider for your safety -- We urge you to follow up with your PRIMARY CARE DOCTOR who can fully evaluate you , Monitor your condition and safely prescribe any necessary medications that are controlled. RUFUS HESS D.O. November 10, 2017 21:24
[2017-11-10 22:46] VITALS: BP 132/95
== END 2017-11-10 21:35 | disposition home or self-care (01) ==
LOC: EMR 20:20
DX: G89.29 Other chronic pain (principal); C50.912 Malignant neoplasm of unspecified site of left female breast; C79.31 Secondary malignant neoplasm of brain; Z90.12 Acquired absence of left breast and nipple; Z92.3 Personal history of irradiation; I10 Essential (primary) hypertension; Z88.8 Allergy status to other drugs, medicaments and biological substances; Z88.0 Allergy status to penicillin; Z91.013 Allergy to seafood
CPT/HCPCS: 96372; 99283; J2270

== ENCOUNTER 2017-12-05 11:18 | Emergency (ER) | payer OTHER ==
[~2017-12-05] VITALS: Ht 165.1 cm; Wt 65.8 kg
[2017-12-05 11:57] VITALS: BP 119/82
--- NOTE | 2017-12-05 11:57 | Emergency Room Report ---
History of Present Illness General Chief Complaint: Back Pain-No Injury Source: Patient, Family Member Present Illness HPI Patient is here with increased back pain Patient provides history of metastatic breast cancer Has recently finished a course of chemotherapy about 5 days ago patient is being provided [place] pills for her pain And reports that that medicine is not controlling her pain patient has been eating and drinking less than usual as well Feels that she has difficulty getting around And taking care of herself Patient is here with family members who are thankful for diagnosing her problem Allergies: Coded Allergies: AMOXICILLIN (Verified Allergy, Severe, rash, 08/15/13) SHELLFISH DERIVED (Verified Allergy, Severe, Anaphylaxis, 08/15/13) IODINE (Unverified Allergy, Unknown, 11/13/14) CLINDAMYCIN (Verified Adverse Reaction, Severe, Anaphylaxis, 08/15/13) METRONIDAZOLE (Verified Adverse Reaction, Severe, Anaphylaxis, 08/15/13) Patient History Past Medical History: see triage record Pertinent Family History: none Reviewed Nursing Documentation: PMH: Agreed; PSxH: Agreed Nursing Documentation-PMH Hx Cardiac Problems: No Hx Hypertension: Yes Hx Pacemaker: No - Mass on back Hx Cancer: Yes - CANCER BRAIN; BREAST,LEFT BREAST MASTECTOMY 2017 Hx Gastrointestinal Problems: No - hernia in esophagus Hx Neurological Problems: Yes - BRAIN TUMOR CHEMO SURGERY CANCER 2013 Hx Alzheimer's Disease: No Hx Seizures: Yes Review of Systems All Other Systems: negative except mentioned in HPI Physical Exam Vital Signs Date Time Temp Pulse Resp B/P (MAP) Pulse Ox O2 Delivery O2 Flow Rate FiO2 12/05/17 11:32 97.7 89 18 119/82 96 Room Air 97.7 Sp02 EP Interpretation: reviewed, normal General Appearance: no apparent distress Head: normocephalic, atraumatic Eyes: bilateral eye PERRL, bilateral eye other - Mild pallor ENT: normal pharynx, no angioedema Neck: supple Respiratory: lungs clear Cardiovascular #1: regular rate, rhythm Gastrointestinal: non tender, soft Musculoskeletal: other - Patient has diffuse discomfort thoracic and lumbar spine region no obvious step-off moving upper extremity without focal deficit Neurologic: alert, oriented x3, responsive Skin: pallor Lymphatic: no adenopathy Medical Decision Making Diagnostic Impression: Primary Impression: Chemotherapy adverse reaction Additional Impressions: Intractable pain Refusal of care by patient ER Course Upon arrival and initial evaluation patient appears in acute pain Patient's family/friend was at bedside from the initial examination she was on the phone talking to case management/insurance company After initial discussion I recommended baseline blood work evaluation and pain medication However the patient and family/friend report that they have discussed the situation with the appropriate people and will be taking her to [facility] Where the patient's Hemeoncologist work Last Vital Signs Date Time Temp Pulse Resp B/P (MAP) Pulse Ox O2 Delivery O2 Flow Rate FiO2 12/05/17 11:32 97.7 89 18 119/82 96 Room Air 97.7 Status: unchanged Disposition: AGAINST MEDICAL ADVICE - Leaving with refusal of care Condition: Unknown Referrals: [facility],REFERRING (PCP) Additional Instructions: Please present to the emergency room if he have any other questions or concerns , or if you would like to be treated here Kristi Mehta DO Dec 05, 2017 11:57
[2017-12-05 11:59] VITALS: BP 119/82
== END 2017-12-05 12:01 | disposition left against medical advice (07) ==
LOC: EMR 11:47
DX: T45.1X5A Adverse effect of antineoplastic and immunosuppressive drugs, initial encounter (principal); M54.9 Dorsalgia, unspecified; Y92.9 Unspecified place or not applicable; I10 Essential (primary) hypertension; Z85.3 Personal history of malignant neoplasm of breast; Z88.8 Allergy status to other drugs, medicaments and biological substances; Z91.041 Radiographic dye allergy status; Z91.013 Allergy to seafood; Z85.841 Personal history of malignant neoplasm of brain; Z90.12 Acquired absence of left breast and nipple; X58.XXXA Exposure to other specified factors, initial encounter
CPT/HCPCS: 99282

== ENCOUNTER 2018-01-13 12:24 | Emergency (ER) | payer OTHER ==
[~2018-01-13] VITALS: Ht 165.1 cm; Wt 63.5 kg
[2018-01-13 12:48] VITALS: BP 125/91
[2018-01-13 14:17] LABS: HEMATOCRIT 39.4 % (37.0-47.0); HEMOGLOBIN 12.4 G/DL (12.0-16.0); MEAN CORPUSCULAR VOLUME 93 FL (80-99); PLATELET COUNT 59 K/UL (150-450); RED BLOOD COUNT 4.23 M/UL (4.20-5.40); WHITE BLOOD COUNT 6.3 K/UL (4.8-10.8)
--- NOTE | 2018-01-13 14:19 | Diagnostic Imaging Report ---
Indication: Abdominal pain Technique: Supine view of the abdomen Comparison: none Findings: Unremarkable bowel gas pattern. No unusual masses or calcifications. The liver appears enlarged. Impression: Hepatomegaly No acute process
[2018-01-13 14:26] LABS: ANION GAP 14 mmol/L (5-15); BLOOD UREA NITROGEN 7 mg/dL (7-18); CALCIUM 9.4 MG/DL (8.5-10.1); CARBON DIOXIDE 20 MMOL/L (21-32); CHLORIDE 106 MMOL/L (98-107); CREATININE 0.7 MG/DL (0.55-1.30); SODIUM 140 MMOL/L (136-145)
--- NOTE | 2018-01-13 14:27 | Emergency Room Report ---
History of Present Illness General Chief Complaint: Abdominal Pain Present Illness HPI This patient c/o today epigastric pain. [id number]: she cannot be specific. Constant. Moderate-severe. No similar history. No fever. No trauma, good appetite. No change bladder/bowel. Breast ca two years. Known liver/spine mets dx here September 2017. Current chemo every few weeks, next in two weeks. No trauma, no fever, no shortness of breath, no chest pain, no nausea, no vomiting, no diarrhea, no syncope, LOC, dizziness, lightheadedness, headache. (Greg Snow M.D.) Allergies: Coded Allergies: AMOXICILLIN (Verified Allergy, Severe, rash, 08/15/13) SHELLFISH DERIVED (Verified Allergy, Severe, Anaphylaxis, 08/15/13) IODINE (Unverified Allergy, Unknown, 11/13/14) CLINDAMYCIN (Verified Adverse Reaction, Severe, Anaphylaxis, 08/15/13) METRONIDAZOLE (Verified Adverse Reaction, Severe, Anaphylaxis, 08/15/13) Patient History Last Menstrual Period: n/a (Greg Snow M.D.) Nursing Documentation-PMH Hx Cardiac Problems: No Hx Hypertension: Yes Hx Pacemaker: No - Mass on back Hx Cancer: Yes - CANCER BRAIN; BREAST,LEFT BREAST MASTECTOMY 2017 Mets to Liver Hx Gastrointestinal Problems: No - hernia in esophagus Hx Neurological Problems: Yes - BRAIN TUMOR CHEMO SURGERY CANCER 2013 Hx Alzheimer's Disease: No Hx Seizures: Yes (Greg Snow M.D.) Review of Systems Constitutional: Denies: fever Eye: Denies: acuity changes Respiratory: Denies: cough, shortness of breath Cardiovascular: Denies: chest pain Gastrointestinal: Reports: see HPI, abdominal pain; Denies: nausea, vomiting Skin: Denies: rash Neurological: Denies: headache (Greg Snow M.D.) Physical Exam Vital Signs Date Time Temp Pulse Resp B/P (MAP) Pulse Ox O2 Delivery O2 Flow Rate FiO2 01/13/18 12:35 97.4 100 16 119/89 96 Room Air 97.3 General Appearance: well appearing, no apparent distress Head: normocephalic, atraumatic ENT: hearing grossly normal, normal voice Neck: full range of motion, supple Respiratory: no respiratory distress, speaking full sentences Gastrointestinal: normal inspection, normal bowel sounds, soft, other - mild- mod epigastric/right tenderness Musculoskeletal: no calf tenderness Neurologic: alert, normal gait Psychiatric: mood/affect normal Skin: no rash (Greg Snow M.D.) Medical Decision Making Diagnostic Impression: Primary Impression: Abdominal pain Additional Impressions: Metastatic breast cancer Transaminitis Elevated bilirubin ER Course labs, US pending will s/o to Dr. Lira (Greg Snow M.D.) ER Course This patient was turned over to me by Dr. Snow. The patient has a history of metastatic cancer. She is being followed by [facility]. I discussed the patient's laboratory findings which is transaminitis and elevated bilirubin with her primary oncologist. The patient's LFTs are the same as they were on the of this month. The primary oncologist will follow this patient for her transaminitis and elevated bili. US only shows liver mets and fatty liver. The patient has an appointment with her oncologist on January 22. The patient is given close return precautions and follow-up instructions. Laboratory Tests Test 01/13/18 13:50 White Blood Count 6.3 K/UL (4.8-10.8) Red Blood Count 4.23 M/UL (4.20-5.40) Hemoglobin 12.4 G/DL (12.0-16.0) Hematocrit 39.4 % (37.0-47.0) Mean Corpuscular Volume 93 FL (80-99) Mean Corpuscular Hemoglobin 29.3 PG (27.0-31.0) Mean Corpuscular Hemoglobin Concent 31.5 G/DL (32.0-36.0) L Red Cell Distribution Width 22.0 % (11.6-14.8) H Platelet Count 59 K/UL (150-450) L Mean Platelet Volume 10.6 FL (6.5-10.1) H Neutrophils (%) (Auto) % (45.0-75.0) Lymphocytes (%) (Auto) % (20.0-45.0) Monocytes (%) (Auto) % (1.0-10.0) Eosinophils (%) (Auto) % (0.0-3.0) Basophils (%) (Auto) % (0.0-2.0) Neutrophils % (Manual) Pending Lymphocytes % (Manual) Pending Platelet Estimate Pending Platelet Morphology Pending Sodium Level 140 MMOL/L (136-145) Potassium Level 4.0 MMOL/L (3.5-5.1) Chloride Level 106 MMOL/L (98-107) Carbon Dioxide Level 20 MMOL/L (21-32) L Anion Gap 14 mmol/L (5-15) Blood Urea Nitrogen 7 mg/dL (7-18) Creatinine 0.7 MG/DL (0.55-1.30) Estimate Glomerular Filtration Rate > 60 mL/min (>60) Glucose Level 88 MG/DL (74-106) Calcium Level 9.4 MG/DL (8.5-10.1) Total Bilirubin 4.7 MG/DL (0.2-1.0) H Direct Bilirubin 2.9 MG/DL (0.0-0.3) H Aspartate Amino Transferase (AST) 615 U/L (15-37) H Alanine Aminotransferase (ALT) 199 U/L (12-78) H Alkaline Phosphatase 564 U/L (46-116) H Total Protein 6.9 G/DL (6.4-8.2) Albumin 2.8 G/DL (3.4-5.0) L Globulin 4.1 g/dL Albumin/Globulin Ratio 0.7 (1.0-2.7) L Lipase 172 U/L (73-393) ([facility] BransongiorgioCatalina Naima ) CT/MRI/US Diagnostic Results CT/MRI/US Diagnostic Results : Imaging Test Ordered: US abd Impression See EMR for official report. (Catalina Lira Naima DELA CRUZ) Last Vital Signs Date Time Temp Pulse Resp B/P (MAP) Pulse Ox O2 Delivery O2 Flow Rate FiO2 01/13/18 12:48 97.3 91 29 125/91 99 Room Air 97.3 (Greg Snow M.D.) Disposition: HOME, SELF-CARE Condition: Improved Patient Instructions: Abdominal Pain, Adult Greg Snow M.D. Jan 13, 2018 14:27 Catalina Lira Naima DELA CRUZ Jan 13, 2018 16:33
[2018-01-13 14:36] LABS: ALANINE AMINOTRANSFERASE 199 U/L (12-78); ALBUMIN 2.8 G/DL (3.4-5.0); ALBUMIN/GLOBULIN RATIO 0.7 (1.0-2.7); ALKALINE PHOSPHATASE 564 U/L (46-116); ASPARTATE AMINO TRANSFERASE 615 U/L (15-37); BILIRUBIN,TOTAL 4.7 MG/DL (0.2-1.0)
[2018-01-13 14:44] LABS: BILIRUBIN,DIRECT 2.9 MG/DL (0.0-0.3)
--- NOTE | 2018-01-13 15:17 | Diagnostic Imaging Report ---
Indication: Epigastric and right upper quadrant pain, abnormal liver function tests Technique: Sidhu-scale and duplex images of the upper abdomen were obtained Comparison: 08/17/2013; also CT chest dated 10/20/2017 Findings: Gallbladder demonstrates sludge. No stones nor pericholecystic fluid. There is borderline gallbladder wall thickening, which is likely artifact of under distention Sonographic Phillips's sign is negative. Common bile duct measures 5 mm in diameter. No intrahepatic biliary ductal dilatation. Liver demonstrates diffuse parenchymal heterogeneity as well as multiple discrete masses measuring up to 2.7 cm diameter. It also demonstrates surface nodularity Portal vein and hepatic veins are patent. Pancreas is unremarkable. The spleen is upper limits normal in size. Left kidney measures 10.5 cm in length. Right kidney measures 10.8 cm length. Both kidneys demonstrate normal echogenicity. There is no hydronephrosis. There are renal cysts bilaterally. . Abdominal aorta is partially obscured by bowel gas, visualized portions are non-aneurysmal . Impression: Multiple liver masses, consistent with multiple metastases, also described on prior imaging studies Hepatic surface nodularity, probably related to the above, although could also indicate cirrhotic changes Gallbladder sludge. No definite stones. Borderline gallbladder wall thickening is probably an artifact of under distention. Negative for dilated ducts Incidental finding bilateral renal cysts
[2018-01-13 15:42] VITALS: BP 118/84
[2018-01-13 16:35] VITALS: BP 118/84
== END 2018-01-13 17:53 | disposition home or self-care (01) ==
LOC: EMR 14:55
DX: R10.13 Epigastric pain (principal); I10 Essential (primary) hypertension; R74.0 Nonspecific elevation of levels of transaminase and lactic acid dehydrogenase [LDH]; E80.6 Other disorders of bilirubin metabolism; C78.7 Secondary malignant neoplasm of liver and intrahepatic bile duct; Z85.3 Personal history of malignant neoplasm of breast; Z85.841 Personal history of malignant neoplasm of brain; Z91.013 Allergy to seafood; Z88.0 Allergy status to penicillin; Z90.12 Acquired absence of left breast and nipple; Z88.1 Allergy status to other antibiotic agents
CPT/HCPCS: 36415; 74018; 76700; 80053; 82248; 83690; 85007; 85025; 99284

== ENCOUNTER 2018-01-23 23:47 | Emergency (ER) | payer OTHER ==
[~2018-01-23] VITALS: Ht 165.1 cm; Wt 61.2 kg
[2018-01-24] MEDS ORDERED: Lidocaine 1% MPF 10mg/ml 5ml INJ ONE (00:45)
[2018-01-24 00:58] VITALS: BP 128/91
--- NOTE | 2018-01-24 02:03 | Emergency Room Report ---
History of Present Illness General Chief Complaint: Multiple Trauma/Fall Source: Patient, Family Member Present Illness HPI This is an unfortunate 57-year-old female with a history of metastatic breast cancer to the liver and spine. She presents with a fall and head injury. Was brought in by her daughter. She try to get out of her hospital bed at home and fell and hit her head. No loss of consciousness. No pain. No other injury. She is currently not undergoing chemotherapy because her labs were abnormal. Was told to come into the hospital for evaluation. Allergies: Coded Allergies: AMOXICILLIN (Verified Allergy, Severe, rash, 08/15/13) SHELLFISH DERIVED (Verified Allergy, Severe, Anaphylaxis, 08/15/13) IODINE (Unverified Allergy, Unknown, 11/13/14) CLINDAMYCIN (Verified Adverse Reaction, Severe, Anaphylaxis, 08/15/13) METRONIDAZOLE (Verified Adverse Reaction, Severe, Anaphylaxis, 08/15/13) Patient History Past Medical History: see triage record, old chart reviewed Past Surgical History: other Pertinent Family History: none Social History: Denies: smoking Last Menstrual Period: na Now: No Immunizations: other Reviewed Nursing Documentation: PMH: Agreed; PSxH: Agreed Nursing Documentation-PMH Hx Cardiac Problems: No Hx Hypertension: Yes Hx Pacemaker: No - Mass on back Hx Cancer: Yes - CANCER BRAIN; BREAST,LEFT BREAST MASTECTOMY 2017 Mets to Liver Hx Gastrointestinal Problems: No - hernia in esophagus Hx Neurological Problems: Yes - BRAIN TUMOR CHEMO SURGERY CANCER 2013 Hx Alzheimer's Disease: No Hx Seizures: Yes Review of Systems Constitutional: Reports: weakness Eye: Denies: eye pain, blurred vision ENT: Denies: ear pain, nose congestion, throat swelling Respiratory: Denies: cough, shortness of breath Cardiovascular: Denies: chest pain, palpitations Gastrointestinal: Denies: abdominal pain, diarrhea, nausea, vomiting Musculoskeletal: Denies: back pain, joint pain Skin: Denies: rash Neurological: Denies: headache, numbness Endocrine: Denies: increased thirst, increased urine Hematologic/Lymphatic: Denies: easy bruising All Other Systems: negative except mentioned in HPI Physical Exam Vital Signs Date Time Temp Pulse Resp B/P (MAP) Pulse Ox O2 Delivery O2 Flow Rate FiO2 01/23/18 23:56 97.5 94 18 128/91 90 Room Air 97.5 vital stable except for hypoxia. Repeat oxygenation on room air is 95% Sp02 EP Interpretation: reviewed, normal General Appearance: alert, cachetic, Chronically Ill Head: normocephalic, other - hematoma to occiput Eyes: bilateral eye PERRL, bilateral eye EOMI, bilateral eye scleral icterus ENT: hearing grossly normal, normal pharynx Neck: full range of motion, supple, no meningismus Respiratory: chest non-tender, lungs clear, normal breath sounds Cardiovascular #1: regular rate, rhythm, no murmur Gastrointestinal: normal bowel sounds, non tender, no mass, no organomegaly, no bruit, non-distended Musculoskeletal: back normal, gait/station normal, normal range of motion Psychiatric: mood/affect normal Skin: warm/dry Medical Decision Making Diagnostic Impression: Primary Impression: Subdural hematoma, acute Additional Impressions: Head injury, acute Qualified Codes: S09.90XA - Unspecified injury of head, initial encounter Thrombocytopenia Metastatic breast cancer ER Course Patient presents with a fall and a subdural hematoma. This may be secondary to her trauma and her thrombocytopenia. At this moment in time, I'll have her labs back yet. She was here last week and platelet count was 59,000. We'll go ahead and give her a dose of Keppra and vitamin K. This is after discussion with trauma surgeon at [facility]. I discussed the case with Dr. Ramirez, trauma surgeon at [facility]. He accepted patient for transfer. Rhythm Strip Diag. Results Rhythm Strip Time: 02:46 EP Interpretation: yes Rate: 90 Rhythm: NSR, no PVC's, no ectopy CT/MRI/US Diagnostic Results CT/MRI/US Diagnostic Results : Imaging Test Ordered: CT head Impression read by radiologist. 8 mm left frontal subdural hematoma. no midline shift. Last Vital Signs Date Time Temp Pulse Resp B/P (MAP) Pulse Ox O2 Delivery O2 Flow Rate FiO2 01/24/18 00:58 97.5 18 128/91 90 Room Air 97.5 01/23/18 23:56 94 Status: unchanged Disposition: XFER SHT-TRM HOSP Condition: Serious Referrals: [facility],REFERRING (PCP) JESUS MELGAR M.D. Jan 24, 2018 02:03
--- NOTE | 2018-01-24 02:20 | Diagnostic Imaging Report ---
EXAM: CT Head Without Intravenous Contrast CLINICAL HISTORY: TRAUMA TECHNIQUE: Axial computed tomography images of the head/brain without intravenous contrast. CTDI is 22 mGy and DLP is 234 mGy-cm. One or more of the following dose reduction techniques were used: automated exposure control, adjustment of the mA and/or kV according to patient size, use of iterative reconstruction technique. COMPARISON: No relevant prior studies available. FINDINGS: Brain: 8 mm intermediate density left frontal subdural fluid collection. Chronic changes in the left frontal lobe Ventricles: Unremarkable. No ventriculomegaly. Bones/joints: Unremarkable. No acute fracture. Soft tissues: Unremarkable. Sinuses: No fluid levels. Mastoid air cells: Unremarkable as visualized. No mastoid effusion. IMPRESSION: Intermediate density left frontal subdural fluid collection. Most likely representing a subacute subdural hemorrhage. No midline shift. No acute hemorrhage. Critical Value Communications 01/24/18 02:24 Verify Receipt Verified receipt with Radiologist workload
[2018-01-24] MEDS ORDERED: levETIRAcetam 500mg/NS100ml 100 ML IVPB ONE (02:45)
[2018-01-24] MEDS ORDERED: Phytonadione 10 mg/mL 1ml amp SUBQ ONE (02:45)
[2018-01-24 02:46] VITALS: BP 138/106
[2018-01-24 03:08] LABS: HEMATOCRIT 40.9 % (37.0-47.0); MEAN CORPUSCULAR VOLUME 96 FL (80-99); PLATELET COUNT 81 K/UL (150-450); RED BLOOD COUNT 4.25 M/UL (4.20-5.40); RED CELL DISTRIBUTION WIDTH 24.8 % (11.6-14.8); WHITE BLOOD COUNT 13.4 K/UL (4.8-10.8)
[2018-01-24 03:23] LABS: INR 2.8 (0.9-1.1)
[2018-01-24 03:35] LABS: ANION GAP 16 mmol/L (5-15); BLOOD UREA NITROGEN 13 mg/dL (7-18); CALCIUM 9.8 MG/DL (8.5-10.1); CARBON DIOXIDE 21 MMOL/L (21-32); CHLORIDE 102 MMOL/L (98-107); CREATININE 0.9 MG/DL (0.55-1.30); SODIUM 139 MMOL/L (136-145)
[2018-01-24 03:46] LABS: ALANINE AMINOTRANSFERASE 119 U/L (12-78); ALBUMIN 2.5 G/DL (3.4-5.0); ALBUMIN/GLOBULIN RATIO 0.6 (1.0-2.7); ALKALINE PHOSPHATASE 508 U/L (46-116); ASPARTATE AMINO TRANSFERASE 603 U/L (15-37); BILIRUBIN,TOTAL 18.7 MG/DL (0.2-1.0)
[2018-01-24 03:49] VITALS: BP 122/87
== END 2018-01-24 03:45 | disposition short-term general hospital (02) ==
LOC: EMR 01-24 01:40
DX: S06.5X0A Traumatic subdural hemorrhage without loss of consciousness, initial encounter (principal); S00.03XA Contusion of scalp, initial encounter; W06.XXXA Fall from bed, initial encounter; Y92.003 Bedroom of unspecified non-institutional (private) residence as the place of occurrence of the external cause; D69.6 Thrombocytopenia, unspecified; C78.7 Secondary malignant neoplasm of liver and intrahepatic bile duct; C79.51 Secondary malignant neoplasm of bone; Z85.3 Personal history of malignant neoplasm of breast; I10 Essential (primary) hypertension; Z91.041 Radiographic dye allergy status; Z85.05 Personal history of malignant neoplasm of liver; Z91.013 Allergy to seafood; Z88.0 Allergy status to penicillin; Z92.21 Personal history of antineoplastic chemotherapy; Z90.12 Acquired absence of left breast and nipple
CPT/HCPCS: 36415; 70450; 80053; 82248; 85025; 85610; 85730; 86850; 86900; 86901; 96365; 96372; 99284; J1953; J3430